=== PATIENT | female | born 1965 | race Caucasian/White ===

== ENCOUNTER → 2017-05-25 | Outpatient (CLI) | payer OTHER | LOC: FIMAGING 12:46 | PROVIDERS: ATTEND Podiatrist Primary Podiatric Medicine | DX: M89.8X7 Other specified disorders of bone, ankle and foot (principal) ==

== ENCOUNTER 2017-07-12 10:38 | Inpatient (IN) | payer OTHER ==
[2017-07-12] MEDS ORDERED: ceFAZolin 2 GM/DEXTROSE 100 ML IV ONE (10:59)
[2017-07-12] MEDS ORDERED: LR 1,000 ML IV ONE (11:00)
[2017-07-12] MEDS ORDERED: LIDOCAINE 1% 2 ML INJ ID PRN (11:00)
[2017-07-12] MEDS ORDERED: BACITRACIN 50,000 UNITS/10 ML SYR IRR ONE ×2 (11:27→12:50)
[2017-07-12] MEDS ORDERED: ceFAZolin 2 GM/SWFI 2 GM/20 ML SYR IVP ONE (11:30)
[2017-07-12] MEDS ORDERED: MIDAZOLAM 2 MG/2 ML VIAL IVP ONE (11:31)
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
[2017-07-12] MEDS ORDERED: MIDAZOLAM 2 MG/2 ML VIAL ONE (11:36)
[2017-07-12] MEDS ORDERED: VANCOMYCIN 1 GM VIAL ONE (11:37)
[2017-07-12] MEDS ORDERED: PROPOFOL/EMULSION 500 MG/50 ML BOTTLE IV ONE (11:37)
[2017-07-12] MEDS ORDERED: fentaNYL 100 MCG/2 ML INJ ONE ×2 (11:40→13:50)
--- NOTE | 2017-07-12 11:56 | PDHPUP ---
History & Physical Update H&P update statement: This history and physical update is based on an assessment of the patient which was completed after admission or registration (within 24 hours), but prior to the surgery/procedure. H&P update: no change in patient's condition since H&P completed
[2017-07-12] MEDS ORDERED: VANCOMYCIN HCL/NORMAL SALINE 250 ML IV ONE (11:57)
[2017-07-12] MEDS ORDERED: BUPIVACAINE 0.25% 30 ML SDV ONE (12:08)
[2017-07-12] MEDS: BUPIVACAINE 0.25% 30 ML SDV ONE ×2 (12:42→13:15)
--- NOTE | 2017-07-12 13:34 | POSTOPPROG ---
Post Op Note Date of Operation: 07/12/17 Surgeon: Coy Dangelo Executive Chairman: none Anesthesiologist: Isaiah Anesthesia: IV Sedation Pre-op Diagnosis: osteomyelitis right 5th ray Post-op Diagnosis: same Indication: osteomyelitis Procedure: 5th ray amputation Findings: bone infection Inf/Abcess present in the surg proc area at time of surgery?: No Depth: Deep Incisional (Fascial) (down to and including bone) EBL: Minimal Total fluids administered: 20cc 9/1 ratio .25% marcaine plain and with epi Complications: anal ulceration noted Drains: Other (none)
[2017-07-12] MEDS ORDERED: ONDANSETRON 4 MG/2 ML VIAL IVP PRN (14:55)
[2017-07-12] MEDS ORDERED: ONDANSETRON DISINTEGRATING 4 MG TAB PO PRN (14:55)
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
[2017-07-12] MEDS ORDERED: LR 500 ML IV PRN (16:29)
[2017-07-12] MEDS ORDERED: HYDROmorphone HCL/NS 0.5 MG/ML SYR IVP PRN (16:29)
[2017-07-12] MEDS ORDERED: LABETALOL HCL 5 MG/ML 20 ML MDV IVP PRN (16:29)
[2017-07-12] MEDS ORDERED: NALOXONE HCL 0.4 MG/ML INJ IVP PRN (16:29)
[2017-07-12] MEDS ORDERED: fentaNYL 100 MCG/2 ML INJ IVP PRN (16:29)
[2017-07-12] MEDS ORDERED: ALBUTEROL 3 ML DEYVIAL IH PRN (16:29)
[2017-07-12] MEDS ORDERED: PROMETHAZINE HCL 25 MG/ML INJ IVP PRN (16:29)
[2017-07-12] MEDS ORDERED: DEXAMETHASONE 4 MG/ML VIAL IVP PRN (16:29)
--- NOTE | 2017-07-12 16:29 | POSTANESTH ---
Post Anesthetic Evaluation Cardiovascular Status: Normal, Stable Respiratory Status: Normal, Stable Level of Consciousness/Mental Status: Can Participate in Eval Pain Control: Adequate, Prn Tx Ordered Nausea/Vomiting Control: Adequate, Prn Tx Ordered Complications Possibly Related to Anesthesia: None Noted
--- NOTE | 2017-07-12 19:05 | PDMN ---
Medical Necessity Medical necessity: Pt meets IP criteria per MD; est los >2 mn for eval/tx of sacral decubitus wound s/p R 5th metatarsal amputation; admit for further monitoring, cxs, Surgery/Wound Care consults, post-op care, pain management & therapies; hx paraplegia, seizures, neurogenic bladder/bowel; per H&P & order
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
[2017-07-13] MEDS ORDERED: ALTEPLASE 2 MG VIAL IVP PRN (00:18)
[2017-07-13] MEDS ORDERED: NS 1,000 ML IV SCH (00:30)
[2017-07-13] MEDS: OXYCODONE/APAP 5/325 TAB PO PRN ×3 (02:10→19:33)
[2017-07-13] MEDS: levETIRAcetam 500 MG TAB PO SCH ×3 (02:11→21:45)
[2017-07-13] MEDS ORDERED: BACLOFEN 20 MG TAB PO ONE (02:16)
[2017-07-13 04:42] LABS: PLATELET COUNT 198 10^3/uL (150-400)
[2017-07-13] MEDS: BACLOFEN 20 MG TAB PO SCH ×3 (09:41→21:45)
[2017-07-13] MEDS: GABAPENTIN 100 MG CAP PO SCH ×3 (09:41→21:45)
--- NOTE | 2017-07-13 13:27 | HOSPPROG ---
Hospitalist Progress Note Assessment/Plan: 51y female with c/o wound. First encounter, chart reviewed. D/W Dr Macedo. #Sacral Decubitus wound: -mgmt per surgery -await Dr Luo consult #Prolapsed bowel -surgical consult and plan today #s/p right 5th metatarsal amputation -POD #1 -mgmt per Dr. Dangelo -was on IV vanco at home, clarifying dose with pharmacy -will get ID consult #Paraplegia, long standing -at baseline #seizure disorder -cont keppra #HTN, low BP after surgery -Hold BP meds #Neurogenic bladder/bowel -consider ostomy Plan: surgical consult sacrum, bowel post op care pain mgmt hold bp meds restart vanco ID consult SCDs Full Code Subjective: Feeling well. Anxious to see the surgeon. Very pleasant. Objective: Vital Signs Temp Pulse Resp BP Pulse Ox 37.2 C 93 16 90/58 L 95 07/13/17 11:32 07/13/17 11:32 07/13/17 11:32 07/13/17 11:32 07/13/17 11:32 Microbiology 07/12/17 13:30 Gram Stain - Final Toe - Tissue Laboratory Results 07/13/17 04:30 07/13/17 04:30 07/12/17 07/13/17 07/14/17 05:59 05:59 05:59 Intake Total 1980 Output Total 1150 Balance 830 - Physical Exam Constitutional: appears nourished, not in pain, chronically ill appearing Eyes: PERRL, anicteric sclera, EOMI Ears, Nose, Mouth, Throat: moist mucous membranes, hearing normal, ears appear normal Cardiovascular: regular rate and rhythym, No JVD, No edema Respiratory: no respiratory distress, no rales or rhonchi, clear to auscultation Gastrointestinal: normoactive bowel sounds, No tenderness, No ascites Skin: warm, erythema, induration Musculoskeletal: joint effusion, generalized weakness, No normal joint ROM Neurologic: AAOx3, weakness Psychiatric: interacting appropriately, not anxious, not encephalopathic, thought process linear ICD10 Worksheet Patient Problems: Problems Problem Status Onset Prolapse of intestine Acute - ICD10 Problem Qualifiers (1) Prolapse of intestine
--- NOTE | 2017-07-13 13:42 | GOP ---
[f rep st] OPERATIVE REPORT DATE OF OPERATION: 07/12/2017 SURGEON: Coy Dangelo DPM PRODUCTION PATTERN MAKER: None. ANESTHESIA: Local with MAC by Bessy Colon M.D. PREOPERATIVE DIAGNOSIS: 1. Ulceration, right lateral 5th metatarsal. 2. Osteomyelitis, right 5th ray. POSTOPERATIVE DIAGNOSIS: 1. Ulceration, right lateral 5th metatarsal. 2. Osteomyelitis, right 5th ray. PROCEDURE PERFORMED: 1. Right 5th ray partial amputation. 2. Skin plasty with primary closure, right foot ulceration. FINDINGS: ESTIMATED BLOOD LOSS: Minimal. DESCRIPTION OF PROCEDURE: The patient presented to [facility] and was cleared for the intended procedure. The patient was taken to the operating room and placed on the table in supine po sition. IV sedation was started per the anesthesia department. The patient was then moved into a la teral position and the foot was prepped, scrubbed and draped in the usual sterile fashion following e xsanguination by elevation and Esmarch bandage, pneumatic ankle tourniquet was inflated to 225 mmHg. Attention was directed to the lateral aspect of the right 5th ray where the obvious ulceration was id entified at this time. A linear incision was started proximal on the 5th metatarsal, carried distall y towards the ulceration. Two converging semi-elliptical incisions were made around the ulceration a nd then the incision was carried distally towards the 5th digit. The incision was carried deep utili zing sharp and blunt dissection, making sure that all neurovascular structures were identified and re tracted. At this time all superficial bleeders were cauterized. The interposing skin tissue of the ulceration was dissected free and removed. Dissection was carried down to the level of the 5th metatarsophalangeal joint. At this time, the pro ximal phalanx and 5th metatarsal were noted to have erosive changes and it was decided that the 5th d igit would not be salvageable, that amputation would be necessary. At this time the incision was car ried dorsal and plantar around the 5th digit into the intermetatarsal space. The toe was disarticula berna at the level of the metatarsophalangeal joint and removed. The sagittal saw was then utilized to cut the 5th metatarsal proximal enough of any erosive changes. The metatarsal was dissected free an d removed and sent in for pathological evaluation and culture and sensitivity at this time. The remaining bone appeared to be normal and healthy at this point. Debridement of any remaining nec rotic tissue was performed before the pneumatic ankle tourniquet was released. No necrotic tissue wa s identified. The area was then flushed with 2 L of sterile saline and antibiotic rinse in a pulse lavage fashion. Upon completion of this, it was decided that the incision could be closed, but given the ulceration, a rotational flap was created to be moved into fill the ulcerative area. Upon completion of this, t he incision was packed with vancomycin-impregnated antibiotic beads. A 4 x 4 EpiFix graft was cut an d laid over the beads the length of the incision to allow for better healing of the tissue. The deep tissue was then closed with 2-0 Vicryl followed by subcutaneous closure with 5-0 Vicryl and skin nicola sure with 2-0 and 5-0 nylon. Upon completion of this, the area was dressed with Betadine-soaked Adaptics, 4 x 4's, Kerlix and Sam n. At this point, the patient was noted to have an anal ulceration and it was decided that a general surgery consultation would be performed in the recovery room. The patient was then taken to the rec overy room, vital signs stable, vascular supply intact to the remaining 4 digits of the right foot. PATHOLOGY: Soft tissue and bone specimen sent for pathological evaluation and culture and sensitivit y. HEMOSTASIS: PAT at 225 mmHg by 43 minutes. MATERIALS: Vancomycin-impregnated antibiotic beads, 4 x 4 cm EpiFix graft. INJECTABLES: 20 cc 9:1 ratio of 0.25% Marcaine plain, 0.25% Marcaine with epinephrine preoperatively . COMPLICATIONS: None. /[id number]/MODL
--- NOTE | 2017-07-13 15:30 | PCMIDPN ---
Assessment/Plan: Assessment/Plan: * Osteomyelitis right 5th toe status post ray amputation: Operative findings reviewed with Dr. Dangelo. Suspect amputation should be curative for osteomyelitis based on operative findings; pathology specimen is currently pending. Cultures are growing Staphylococcus aureus with susceptibility profile pending. Patient has completed approximately 6 weeks of vancomycin as of 07/11/2017. Reviewed with her treating infectious diseases physician at [facility] with noted plan of discontinuation post amputation. Will continue vancomycin through and plan discontinuation on Sunday as likely area of infected bone has been resected surgically. Time spent, greater than 35 min, of which greater than half was spent in education/counseling/coordination of care related to osteomyelitis of right 5th toe including conversations with Podiatry and Dr. Felton, her treating infectious disease doctor from [facility]. 07/13/17 15:25 07/13/17 15:30 Subjective: Asked to see patient by Latasha Montilla NP for osteomyelitis of right 5th toe and to assist with ongoing antibiotic management. Dr. Reddy [facility]2017 is reviewed. Plain film of foot performed in May is also reviewed showing erosive changes of 5th metatarsal. Patient has been receiving vancomycin since early May after hospitalization at [facility] where she describes having sepsis. Vancomycin has been administered under the supervision of [facility]. Patient describes anticipated stop date as 07/11/2017. No recent fever, chills or night sweats. Has had some difficulty with draws from PICC line. Now admitted and has undergone ray amputation of 5th toe. Noted to have decubitus ulcer at time of surgical procedure which has been evaluated by Dr. Luo. Allergies: No known drug allergies Social history: Patient stop smoking in April Objective: Vital Signs Temp Pulse Resp BP Pulse Ox 37.2 C 93 16 90/58 L 95 07/13/17 11:32 07/13/17 11:32 07/13/17 11:32 07/13/17 11:32 07/13/17 11:32 Microbiology 07/12/17 13:30 Gram Stain - Final Toe - Tissue Laboratory Results 07/13/17 04:30 07/13/17 04:30 07/12/17 07/13/17 07/14/17 05:59 05:59 05:59 Intake Total 1980 Output Total 1150 Balance 830 Vancomycin dose 1.5 g IV q.12 hours confirmed with [facility] - Physical Exam General Appearance: alert, no apparent distress EENT: No scleral icterus, No thrush Respiratory: lungs clear, No respiratory distress Cardiac/Chest: regular rate, rhythm Extremities: other (Right foot dressed postoperatively with deviation medially of foot) ICD10 Worksheet Patient Problems: Problems Problem Status Onset Prolapse of intestine Acute
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
--- NOTE | 2017-07-13 17:26 | WOCRNPDOC ---
[facility] Advanced Assessment Note - Skin Integrity Problem, Advanced Assess Perianal Maceration Dressing Type: Open to Air Exudate Amount: Scant Exudate Color: Reddish/Yellow Exudate Characteristic(s): Serosanguinous Patricia Wound Tissue: Blanching, Erythema, Macerated Patricia Wound Swelling: Moderate Wound Bed Color: [place], Red, Yellow Wound Bed Constitution: Granulation Tissue (20%), Red/[place] - Non Granular Tissue (70%), Adhered Slough (10%) Wound Edges: Irregular Site Odor: None Site Measurement - Head-to-Toe Length X Width X Depth (cm): L perianal wound: [id number]. R perianal wound:[id number] Skin Integrity Problem Comment: Extensive perianal tissue loss r/t prolapsed rectum and near-constant exposure to moisture. This wound is not pressure- related, not over a bony prominence. White, raised margins indicative moisture- associated skin damage. Per patient report, she says the rehab facility where she was previously began putting "a cream" on the area a "couple of weeks ago." The wound itself is oozing serous fluid, not likely that even a moisture- barrier cream would adhere/protect site. Recommend pressure-relieving support surface, as the skin breakdown and her paralysis make her vulnerable to pressure injuries. Nursing to order bed w/ P500 mattress. Continue w/ turns q2 and TAPS. Keep site dry by changing chux regularly.
[2017-07-13] MEDS: VANCOMYCIN 1.5 GM in D5W 250 ML IV SCH (17:39)
--- NOTE | 2017-07-13 18:22 | GCON ---
[f rep st] CONSULTATION DATE OF CONSULTATION: 07/13/2017 REASON FOR CONSULTATION: Rectal prolapse. HISTORY OF PRESENT ILLNESS: The patient is a 51-year-old woman who was taken to the operating room jerrod Dangelo for a right 5th metatarsal amputation for a chronic wound on her right foot. In the operating room, she was found to have a large sacral wound and significant rectal prolapse. We have been asked to evaluate the need for intervention for the rectal prolapse at this time. She reports t hat this has been a chronic issue for her. It reduces. She has had a colonoscopy which showed recta l prolapse. No other findings. She denies pain in the area. She has T5 paraplegia and has chronic constipation requiring bowel protocol every 2 days. She has been considering an end colostomy for re gulation of her bowel habits and gained independence. PAST MEDICAL HISTORY: T5 paraplegia, seizures, right foot wound, neurogenic bladder, hypertension. PAST SURGICAL HISTORY: Right foot debridement, right 5th metatarsal amputation, cervical fusion, cho lecystectomy. SOCIAL HISTORY: She is . She lives independently with home care. She denies tobacco, alcoh ol or recreational drug use. FAMILY HISTORY: Noncontributory. ALLERGIES: No known drug allergies. PHYSICAL EXAMINATION: GENERAL: Well-developed, well-nourished woman in no acute distress. HEENT: Normocephalic, atraumatic. No hearing deficits. Pupils equal and round. No scleral icterus. Mucou s membranes moist. NECK: Trachea midline. RESPIRATORY: Clear to auscultation bilaterally. No inc reased work of breathing. CARDIOVASCULAR: Regular rate and rhythm. ABDOMEN: Normoactive bowel iona nds. Soft, nondistended, nontender. Previous surgical scars from cholecystectomy well-healed. SKIN : Warm and dry. NEURO: Paraplegic. PSYCH: Mood and affect normal. Results reviewed. Dr. Luo has received several pictures of the wound and the rectal prolapse over the past 24 hours. It appears to be a superficial wound secondary to incontinence and increased mois ture, possible combination of pressure. Rectal prolapse is reducible without thrombosis or active bl eeding. IMPRESSION AND PLAN: A 51-year-old woman with rectal prolapse leading to the skin breakdown of her s acral area due to increased moisture. We discussed surgical intervention including sigmoid colectomy with rectopexy versus end-colostomy. We discussed risks of surgery including, but not limited to, h eart attack, stroke, blood clots or . We discussed risk of infection, bleeding, damage to surro unding structures, need for additional procedures, anastomotic leak or recurrence. She understands t he risks. She will think about her option and will decide tomorrow what surgical procedure she would like. This does not need to be done during this hospitalization. She may be discharged home and re turn for surgery within the next 1-2 weeks. We will work with our animal feeder to set up a surg ana date and time. Appreciate Hospitalist management of comorbidities and ID management of IV antibi otics for chronic wound. The patient was seen and evaluated by Dr. Ángela Luo. /[id number]/MODL
[2017-07-14] MEDS: VANCOMYCIN 1.5 GM in D5W 250 ML IV SCH ×2 (06:01→17:34)
[2017-07-14] MEDS: BACLOFEN 20 MG TAB PO SCH ×3 (09:26→21:20)
[2017-07-14] MEDS: levETIRAcetam 500 MG TAB PO SCH ×2 (09:27→21:20)
[2017-07-14] MEDS: GABAPENTIN 100 MG CAP PO SCH ×3 (09:27→21:20)
--- NOTE | 2017-07-14 11:41 | SOAPPROG ---
LOBO Progress Note Assessment/Plan: Assessment: 51 y/o paraplegic F with rectal prolapse with surrounding wound due to incontinence. S: No complaints. Eating breakfast during visit. Denies pain. O: Alert Afebrile Abdomen soft, nontender Plan: Seen with Dr. Luo. Recommend colostomy with Leonard's pouch as opposed to sigmoid colectomy and rectopexy. Pt will think about which option she wants to pursue. Surgery will be scheduled in the next week or 2, does not need to happen during this hospitalization. 07/14/17 11:42 Objective: Vital Signs Temp Pulse Resp BP Pulse Ox 36.5 C 89 16 110/60 99 07/14/17 08:00 07/14/17 08:00 07/14/17 08:00 07/14/17 08:00 07/14/17 08:00 Microbiology 07/12/17 13:30 Gram Stain - Final Toe - Tissue Laboratory Results 07/13/17 04:30 07/13/17 04:30 07/13/17 07/14/17 07/15/17 05:59 05:59 05:59 Intake Total 1980 1450 Output Total 1150 1400 600 Balance 830 -1400 850 ICD10 Worksheet Patient Problems: Problems Problem Status Onset Prolapse of intestine Acute
[2017-07-14] MEDS: OXYCODONE/APAP 5/325 TAB PO PRN (12:33)
--- NOTE | 2017-07-14 14:04 | HOSPPROG ---
Hospitalist Progress Note Assessment/Plan: 51y female with c/o wound. First encounter, chart reviewed. #Sacral Decubitus wound: -surgery in next week or 2 #rectal prolapse with surrounding wound due to incontinence -surgery is recommending a Marvin's pouch in the next week or two #acute hypoxemia per nursing staff patient's oxygen levels drop in the 60% area/likely has sleep apnea will get a chest xray today # Osteomyelitis s/p right 5th metatarsal amputation -POD #2 -mgmt per Dr. Dangelo -per Dr Macedo's noted, to cont vancomycin through the weekend and dc on Sunday, likely area of infected bone has been resected surgically -culture growing MRSA -will get ID consult #Paraplegia, long standing -at baseline #seizure disorder -cont keppra #HTN, low BP after surgery -Hold BP meds #Neurogenic bladder/bowel -motta in/ straight caths herself 3 x daily #Plan: will aim to dc tomorrow w home care, ordered a sleep oximetry study tonigh Subjective: Kim has no complaints, anxious to go home. Objective: Vital Signs Temp Pulse Resp BP Pulse Ox 36.5 C 89 16 110/60 99 07/14/17 08:00 07/14/17 08:00 07/14/17 08:00 07/14/17 08:00 07/14/17 08:00 Microbiology 07/12/17 13:30 Gram Stain - Final Toe - Tissue Laboratory Results 07/13/17 04:30 07/13/17 04:30 07/13/17 07/14/17 07/15/17 05:59 05:59 05:59 Intake Total 1979 1949 Output Total 1150 1400 1600 Balance 830 -1400 350 - Physical Exam Constitutional: no apparent distress, appears nourished, No not in pain (right shoulder chronic pain) Eyes: PERRL Ears, Nose, Mouth, Throat: hearing normal Cardiovascular: regular rate and rhythym Respiratory: no respiratory distress Skin: warm Musculoskeletal: generalized weakness Neurologic: AAOx3 Psychiatric: interacting appropriately, not anxious ICD10 Worksheet Patient Problems: Problems Problem Status Onset Prolapse of intestine Acute
[2017-07-14] MEDS ORDERED: BISACODYL 10 MG SUPP PR PRN (14:46)
[2017-07-14] MEDS ORDERED: LACTULOSE 20 GM/30 ML UDCUP PO PRN (14:46)
[2017-07-14] MEDS ORDERED: MAGNESIUM HYDROXIDE 30 ML UDCUP PO PRN (14:46)
[2017-07-14] MEDS ORDERED: POLYETHYLENE GLYCOL 3350 17 GM PKT PO PRN (14:46)
--- NOTE | 2017-07-14 17:25 | ASMTCMCOM ---
CM Note CM Note Notes: Reviewed chart and discussed w/RN and Hospitalist and w/patient. Pt will likely come back towards end of next week for surg for rectal prolapse. She will likely dc tomorrow and resume HHC w/[facility]; I left a voicemail for Liza w/[facility] today. CM will need to clarify w/MD tomorrow when pt will be stopping home IV ABX; she is current w/[facility] for this and we will also need to touch base w/them tomorrow if pt does dc. Pt said her son will be able to pick her up tomorrow. CM to follow. Date Signed: 07/14/2017 05:24 PM Electronically Signed By:Mela Samuels RN
[2017-07-14] MEDS: ACETAMINOPHEN 325 MG TAB PO PRN (17:48)
[2017-07-14] MEDS ORDERED: NS 500 ML IV ONE (23:04)
--- NOTE | 2017-07-14 23:22 | CPEKG ---
Heart Rate: 107 RR Interval: 561 P-R Interval: 176 QRSD Interval: 98 QT Interval: 332 QTC Interval: 443 P Olalla: 50 QRS Olalla: 80 T Wave Olalla: -73 EKG Severity - ABNORMAL ECG - EKG Impression: SINUS TACHYCARDIA EKG Impression: MULTIPLE VENTRICULAR PREMATURE COMPLEXES EKG Impression: PROBABLE LEFT ATRIAL ABNORMALITY EKG Impression: CAN'T R/O OLD ANTEROSEPTAL ID. EKG Impression: DIFFUSE ST-T WAVE ABNORMALITIES. Electronically Signed By: Frederick Canales 15-Jul-2017 07:30:39
[2017-07-15] MEDS: SENNOSIDES/DOCUSATE SODIUM TAB PO SCH ×2 (00:50→09:25)
[2017-07-15] MEDS: ACETAMINOPHEN 325 MG TAB PO PRN ×2 (02:35→09:22)
[2017-07-15] MEDS: VANCOMYCIN 1.5 GM in D5W 250 ML IV SCH (05:07)
[2017-07-15 07:42] VITALS: BP 132/77
--- NOTE | 2017-07-15 08:27 | HOSPPROG ---
Hospitalist Progress Note Assessment/Plan: 51y female with c/o wound. #Sacral Decubitus wound: -surgery in next week or 2 #rectal prolapse with surrounding wound due to incontinence -surgery is recommending a Marvin's pouch in the next week or two #acute hypoxemia, consistent with sleep apnea -sleep oximetry study shows 24% of the time that her O2 levels are 86-89% -will order home O2 for night and have her get an OP sleep study # Osteomyelitis s/p right 5th metatarsal amputation/MRSA -POD #3 -mgmt per Dr. Dangelo -reviewed w Dr Macedo, ok to dc vancomycin after this morning's dose #Paraplegia, long standing -at baseline #seizure disorder -cont keppra #HTN, low BP after surgery -Hold BP meds #Neurogenic bladder/bowel -motta in/ straight caths herself 3 x daily #Plan: dc home, dc PICC, home O2 Subjective: Kim is feeling great, anxious to go home Objective: Vital Signs Temp Pulse Resp BP Pulse Ox 36.6 C 87 16 132/77 H 95 07/15/17 07:41 07/15/17 07:41 07/15/17 07:41 07/15/17 07:41 07/15/17 07:41 Microbiology 07/12/17 13:30 Gram Stain - Final Toe - Tissue Laboratory Results 07/13/17 04:30 07/15/17 04:25 07/14/17 07/15/17 07/16/17 05:59 05:59 05:59 Intake Total 3530 Output Total 1400 3500 Balance -1400 30 - Physical Exam Constitutional: no apparent distress, appears nourished, not in pain Eyes: PERRL Ears, Nose, Mouth, Throat: hearing normal Respiratory: no respiratory distress Genitourinary: motta in urethra Skin: warm Neurologic: AAOx3 Psychiatric: interacting appropriately, not anxious ICD10 Worksheet Patient Problems: Problems Problem Status Onset Prolapse of intestine Acute
--- NOTE | 2017-07-15 09:03 | PDHOMEO2F ---
Home Oxygen Face to Face Home Orders: I certify that a physician or a nurse practitioner or physician's cashier assistant has had a [id number] encounter with this patient on the date of this order due to the diagnosis listed, which relates to the primary reason the patient requires home oxygen. Alternative treatments have been tried, or considered, and deemed ineffective. It is anticipated that supplemental oxygen will result in improvement with treatment. Home oxygen qualifying diagnosis: DANIEL SpO2 on room air (%): 86% Frequency of home oxygen needed: during sleep Home oxygen liters per minute: 2 Home oxygen delivery device: nasal cannula Concentrator: No E-tanks for mobility and back up: No If ordering portable O2, is the patient mobile in the home?: No I certify that, based on these findings, the home oxygen is medically necessary for this patient for the following length of time. Length of time home oxygen needed: 99 years Home Oxygen Comment: patient had pulse oximetry study done at night indicating she will need oxygen
--- NOTE | 2017-07-15 09:10 | PDIAF ---
- Diagnosis Diagnosis: Osteomyelitis of 5th metatarsal s/p amputation, DANIEL Code Status: Full Code - Medication Management Discharge Medications: Medications to Continue on Transfer Baclofen 40 mg PO DAILY 07/12/17 [Last Taken 07/12/17] Baclofen 60 mg PO DAILY@12 07/12/17 [Last Taken 07/12/17] Baclofen 60 mg PO HS 07/12/17 [Last Taken 07/12/17] Gabapentin [Neurontin 100 MG (*)] 100 mg PO TID 07/12/17 [Last Taken 07/12/17] LEVETIRACETAM [Keppra 1000 mg] 1,000 mg PO BID #30 tab 07/15/17 [Last Taken Unknown] Lisinopril 20 mg PO HS #30 tablet 07/15/17 [Last Taken Unknown] amLODIPine BESYLATE [Amlodipine Besylate] 10 mg PO DAILY #30 tablet 07/15/17 [ Last Taken Unknown] Discharge Medications: Refer to the Discharge Home Medication list for PRN reason. PICC Care - Routine: N/A - Orders Services needed: Home Care, Registered Nurse, Physical Therapy, Occupational Therapy Home Care Face to Face: I certify that this patient was under my care and that I had the required acbc-wa-phuj encounter meeting the encounter requirements on the discharge day. My findings support the fact that the patient is homebound as defined in Home Care Face to Face Continued: CMS Chapter 7 Medicare Benefits Manual 30.1.1 , The condition of the patient is such that there exists a normal inability to leave home and consequently, leaving home would require a considerable and taxing effort. Isolation Type: Contact Isolation Diet Recommendation: no restrictions on diet Diet Texture: Regular Texture Diet Additional Instructions: be sure to check your blood pressure and if systolic is less than 110, do not take the amlodipine or lisinopril f/u with Dr Meaghan Meyer is a wonderful PCP you need to get an OP sleep study, you have DANIEL and need a formal study for this - Follow Up Care Current Providers and Referrals: Esmer Meyer MD [Medical Doctor] - NONE *PRIMARY CARE P,. [Primary Care Provider] -
--- NOTE | 2017-07-15 09:12 | ASMTLACE ---
LACE Length of stay for Answers: 3 days current admission Acuity / Level of Answers: Yes Care: Did the patient have an inpatient admission? Comorbidities - select Answers: Opioid dependence all that apply / Chronic pain Other Notes: HTN # of Emergency department Answers: 0 visits in the last 6 months Score: 11 Date Signed: 07/15/2017 09:11 AM Electronically Signed By:Violeta Singh LCSW
[2017-07-15] MEDS: GABAPENTIN 100 MG CAP PO SCH (09:20)
[2017-07-15] MEDS: levETIRAcetam 500 MG TAB PO SCH (09:21)
[2017-07-15] MEDS: BACLOFEN 20 MG TAB PO SCH (09:22)
--- NOTE | 2017-07-15 09:22 | SOAPPROG ---
SOAP Progress Note Assessment/Plan: Assessment: 51 y/o paraplegic F with rectal prolapse with surrounding wound due to incontinence. S: No complaints. Eating breakfast during visit. Denies pain. O: Alert Afebrile Abdomen soft, nontender Plan: Seen with Dr. Luo. Recommend colostomy with Leonard's pouch as opposed to sigmoid colectomy and rectopexy. Pt will think about which option she wants to pursue. Surgery will be scheduled in the next week or 2, does not need to happen during this hospitalization. 07/14/17 11:42 07/15/17 09:21 no complaints. More questions about surgery were answered. Ok to discharge. Plan for surgery later this week. Objective: Vital Signs Temp Pulse Resp BP Pulse Ox 36.6 C 87 16 132/77 H 95 07/15/17 07:41 07/15/17 07:41 07/15/17 07:41 07/15/17 07:41 07/15/17 07:41 Microbiology 07/12/17 13:30 Gram Stain - Final Toe - Tissue Laboratory Results 07/13/17 04:30 07/15/17 04:25 07/14/17 07/15/17 07/16/17 05:59 05:59 05:59 Intake Total 3530 Output Total 1400 3500 Balance -1400 30 ICD10 Worksheet Patient Problems: Problems Problem Status Onset Prolapse of intestine Acute
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
--- NOTE | 2017-07-15 09:43 | GDS ---
[f rep st] DISCHARGE SUMMARY DISCHARGE DIAGNOSES: 1. Osteomyelitis, status post right 5th metatarsal amputation. 2. Sacral decubitus. 3. Rectal prolapse with surrounding wound due to incontinence. 4. Acute hypoxemia consistent with obstructive sleep apnea. 5. Paraplegia, long-standing. 6. Seizure disorder. 7. Hypertension. 8. Neurogenic bladder and bowel. CONSULTATIONS: 1. Dr. Coy Dangelo. 2. Dr. Bill Ortiz. 3. Dr. Frederick Macedo. HISTORY OF PRESENT ILLNESS: Briefly, the patient is a 52-year-old female with longstanding paraplegi a who has a history of chronic right foot infections. During her stay, she had a 5th metatarsal ampu tation with Dr. Dangelo. After surgery, she was found to have a large sacral decubitus, which she was previously not aware. Dr. Ortiz evaluated her. The recommendation is for her to have followup with surgery in the next 2 weeks. She met with Dr. Luo and the plan is for her to get a Marvin's pouch to avoid peritoneal soilage, which is impacting her wound. She will be discharged with home c are and further follow up with Dr. Dangelo in regard to her right 5th metatarsal amputation. In ad dition, it was noted by the nursing staff that the patient had episodes of sleep apnea during the nig ht. An oximetry study was performed, which indicated she would need oxygen. This will be ordered. Also has made recommendations for her to get an outpatient sleep study. HOSPITAL COURSE: 1. Osteomyelitis. She is status post a right 5th metatarsal amputation. She was treated with vanco mycin. It is likely that the infection was removed with the surgery. The peripherally inserted cent ral catheter line will be removed today and she will further follow up with Dr. Dangelo. 2. Sacral decubitus. This is secondary to loose stool due to incontinence. The plan is for her to get a Marvin's pouch in the next week or two. 3. Rectal prolapse. She has a surrounding wound due to the incontinence. 4. Acute hypoxemia. This is consistent with obstructive sleep apnea. A sleep oximetry study shows that 24% of the time, her oxygen levels are 86% to 89%. Home oxygen has been ordered. 5. Paraplegia, long-standing. She is at her baseline. 6. Seizure disorder. Keppra. 7. Hypertension. She can resume her home medications, as long as her systolic is greater than 110. 8. Neurogenic bladder and bowel. She has a very good regimen at home to keep this well managed. DISCHARGE CONDITION: Stable. Blood pressure is 132/77, heart rate of 87, respiratory rate is 16, O2 saturation on room air are 95%, temperature is 36.6 Celsius. MEDICATIONS AT DISCHARGE: Please see the EMR. DISCHARGE INSTRUCTIONS: 1. Follow up Dr. Dangelo. 2. To follow up with Dr. Luo in regard to her wound. 3. I have given her a primary care doctor for followup care. 4. If she develops fever, chills, chest pain, shortness of breath, return to the ER. Greater than 30 minutes discharging and coordinating her care. /[id number]/MODL
== END 2017-07-15 13:02 | disposition home health service (06) | DRG 574 ==
LOC: FSGY 10:38 → F3E 14:29 → OBSVTOIN 14:43 → F3N 15:47
PROVIDERS: ADMIT Family Medicine; ATTEND Internal Medicine
PROC: 0JXQ0ZB Transfer Right Foot Subcutaneous Tissue and Fascia with Skin and Subcutaneous Tissue, Open Approach (ICD-10-PCS; principal; 2017-07-12 12:00)
PROC: 0Y6X0Z0 Detachment at Right 5th Toe, Complete, Open Approach (ICD-10-PCS; principal; 2017-07-12 12:00)
PROC: 0HRMXK4 Replacement of Right Foot Skin with Nonautologous Tissue Substitute, Partial Thickness, External Approach (ICD-10-PCS; principal; 2017-07-12 12:00)
PROC: 0QBN0ZZ Excision of Right Metatarsal, Open Approach (ICD-10-PCS; principal; 2017-07-12 12:00)
DX: L98.421 Non-pressure chronic ulcer of back limited to breakdown of skin (principal); K62.3 Rectal prolapse; K59.2 Neurogenic bowel, not elsewhere classified; L97.511 Non-pressure chronic ulcer of other part of right foot limited to breakdown of skin; L03.115 Cellulitis of right lower limb; M86.671 Other chronic osteomyelitis, right ankle and foot; B95.62 Methicillin resistant Staphylococcus aureus infection as the cause of diseases classified elsewhere; G82.21 Paraplegia, complete; N31.9 Neuromuscular dysfunction of bladder, unspecified; V87.7XXS Person injured in collision between other specified motor vehicles (traffic), sequela; G47.33 Obstructive sleep apnea (adult) (pediatric); R09.02 Hypoxemia; G40.909 Epilepsy, unspecified, not intractable, without status epilepticus; K64.9 Unspecified hemorrhoids; Z99.3 Dependence on wheelchair; I10 Essential (primary) hypertension; Z87.891 Personal history of nicotine dependence; Z98.1 Arthrodesis status
CPT/HCPCS: C1713; J0171; J2250; J2704; J2997; J3010; J3370; Q4131

== ENCOUNTER 2017-07-27 08:37 | Inpatient (IN) | payer OTHER ==
--- NOTE | 2017-07-25 11:50 | GHP ---
[f rep st] PREOP HISTORY AND PHYSICAL DATE OF ADMISSION: 07/27/2017 DATE OF SURGERY: 07/27/2017. CHIEF COMPLAINT: Rectal prolapse. HISTORY OF PRESENT ILLNESS: The patient is a pleasant 52-year-old woman who was recently taken to the operating room by Dr. Dangelo for right 5th metatarsal amputation for chronic wound on her foot. In the operating room, she was found to have a large sacral wound and significant rectal prolapse. She was admitted to the hospitalist for further workup. We evaluated her at that time. This is a chronic issue for her. The prolapse will reduce spontaneously. She has had a colonoscopy which showed rectal prolapse but no other finding. She denies any pain in the area. She has T5 paraplegia and chronic constipation requiring bowel protocol every 2 days. She has been considering an end-colostomy for quite some time for regulation of bowel habits and increased independence. At the time of her evaluation, the large sacral wound was deemed to be due to increased moisture in the area and incontinence, less likely pressure. PAST MEDICAL HISTORY: T5 paraplegia, seizures, right foot wound, neurogenic bladder, hypertension. PAST SURGICAL HISTORY: Right foot debridement, right 5th metatarsal amputation , cervical fusion, cholecystectomy. SOCIAL HISTORY: She is . She lives independently with home care. She denies tobacco, alcohol, or recreational drug use. FAMILY HISTORY: Noncontributory. ALLERGIES: No known drug allergies. REVIEW OF SYSTEMS: 10-point review of systems negative aside from HPI. PHYSICAL EXAMINATION: GENERAL: Well-developed, well-nourished woman in no acute distress. HEENT: Normocephalic, atraumatic. No hearing deficits. Pupils equal and round. No scleral icterus. Mucous membranes moist. NECK: Trachea midline. RESPIRATORY: Clear to auscultation bilaterally. No increased work of breathing. CARDIOVASCULAR: Regular rate and rhythm. No peripheral edema. ABDOMEN: Normoactive bowel sounds. Soft, nondistended, nontender. RECTAL: Deferred because previously evaluated. SKIN: Warm and dry. NEUROLOGIC: Paraplegic. PSYCHIATRIC: Mood and affect normal. IMPRESSION AND PLAN: A 52-year-old woman with rectal prolapse leading to skin breakdown of her sacral area due to increased moisture and incontinence. We recommend sigmoid colectomy with end colostomy. We discussed risks of surgery, including but not limited to, heart attack, stroke, blood clots, or . We discussed risk of infection, bleeding, damage to surrounding structures, need for additional procedures. She understands the risks and would like to proceed. This will be an inpatient procedure. I personally saw and evaluated this patient and Laila Robertson PA-C acted as scribe /[id number]/MODL MTDD
[2017-07-27] MEDS ORDERED: LR 1,000 ML IV ONE (08:56)
[2017-07-27] MEDS ORDERED: BUPIVACAINE 0.5% 30 ML SDV ONE (09:06)
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
--- NOTE | 2017-07-27 09:14 | PDHPUP ---
History & Physical Update H&P update statement: This history and physical update is based on an assessment of the patient which was completed after admission or registration (within 24 hours), but prior to the surgery/procedure. H&P update: H&P reviewed & patient examined, no change in patient's condition since H&P completed
[2017-07-27] MEDS ORDERED: ROCURONIUM 50 MG/5 ML VIAL ONE (09:24)
[2017-07-27] MEDS ORDERED: fentaNYL 250 MCG/5 ML INJ ONE (09:24)
[2017-07-27] MEDS ORDERED: PROPOFOL 200 MG/20 ML VIAL ONE (09:24)
[2017-07-27] MEDS ORDERED: MIDAZOLAM 2 MG/2 ML VIAL ONE (09:24)
[2017-07-27] MEDS ORDERED: DEXAMETHASONE 4 MG/ML VIAL ONE (09:25)
[2017-07-27] MEDS ORDERED: RANITIDINE 50 MG/2 ML VIAL ONE (09:25)
[2017-07-27] MEDS ORDERED: LIDOCAINE 2% 100 MG/5 ML SYR ONE (09:25)
--- NOTE | 2017-07-27 12:06 | POSTOPPROG ---
Post Op Note Date of Operation: 07/27/17 Surgeon: Ángela Luo Extract Operator: aureliano Anesthesiologist: asya Anesthesia: GET(General Endotracheal) Pre-op Diagnosis: rectal prolapse, paraplegia Post-op Diagnosis: same Indication: 52yo F c rectal prolapse and perianal wound due to incontinence Procedure: lap assist sigmoidectomy with leni's pouch, debridement perianal wound Findings: redundant sigmoid colon. perianal wound Inf/Abcess present in the surg proc area at time of surgery?: No EBL: Minimal Specimen(s): sigmoid colon
[2017-07-27] MEDS ORDERED: diphenhydrAMINE 25 MG CAP PO PRN (12:08)
[2017-07-27] MEDS ORDERED: ONDANSETRON DISINTEGRATING 4 MG TAB PO PRN (12:08)
[2017-07-27] MEDS ORDERED: ONDANSETRON 4 MG/2 ML VIAL IVP PRN ×2 (12:08→12:22)
[2017-07-27] MEDS ORDERED: ACETAMINOPHEN 325 MG TAB PO PRN (12:08)
[2017-07-27] MEDS ORDERED: HYDROmorphONE/DILAUDID 1 MG/ML INJ IVP PRN (12:09)
[2017-07-27] MEDS ORDERED: NALOXONE HCL 0.4 MG/ML INJ IVP PRN (12:22)
[2017-07-27] MEDS ORDERED: ALBUTEROL 3 ML DEYVIAL IH PRN (12:22)
--- NOTE | 2017-07-27 12:23 | POSTANESTH ---
Post Anesthetic Evaluation Cardiovascular Status: Similar to Pre-Op Cond Respiratory Status: Similar to Pre-op Cond. Level of Consciousness/Mental Status: Mildly Sleepy, Arousable Pain Control: Adequate, Prn Tx Ordered Nausea/Vomiting Control: Adequate, Prn Tx Ordered Complications Possibly Related to Anesthesia: None Noted
[2017-07-27] MEDS ORDERED: HYDROmorphone HCL/NS 0.5 MG/ML SYR IVP PRN (13:16)
--- NOTE | 2017-07-27 13:56 | PDMN ---
Medical Necessity Medical necessity: IP surgery per [facility] cpt 21581 lap assisted sigmoidectomy w/ Marvin's pouch
[2017-07-27] MEDS: GABAPENTIN 100 MG CAP PO SCH ×2 (16:17→21:50)
[2017-07-27] MEDS: NS 1,000 ML IV SCH (16:41)
[2017-07-27] MEDS ORDERED: LEVETIRACETAM 1000 MG PO SCH (21:00)
[2017-07-27] MEDS: BACLOFEN 20 MG TAB PO SCH (21:50)
[2017-07-27] MEDS: levETIRAcetam 500 MG TAB PO SCH (21:50)
[2017-07-27] MEDS: HYDROCODONE/APAP 5/325 TAB PO PRN (22:47)
[2017-07-28] MEDS: NS 1,000 ML IV SCH (06:11)
[2017-07-28] MEDS: GABAPENTIN 100 MG CAP PO SCH ×3 (08:23→21:32)
[2017-07-28] MEDS: levETIRAcetam 500 MG TAB PO SCH ×2 (08:23→21:32)
[2017-07-28] MEDS: ENOXAPARIN 40 MG/0.4 ML SYR SC SCH (08:23)
[2017-07-28] MEDS: BACLOFEN 20 MG TAB PO SCH ×3 (08:23→21:32)
[2017-07-28] MEDS: HYDROCODONE/APAP 5/325 TAB PO PRN ×3 (08:35→21:32)
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
[2017-07-29] MEDS: HYDROCODONE/APAP 5/325 TAB PO PRN ×2 (06:04→13:47)
[2017-07-29 08:04] VITALS: BP 92/53
[2017-07-29] MEDS: BACLOFEN 20 MG TAB PO SCH ×2 (08:06→13:56)
[2017-07-29] MEDS: GABAPENTIN 100 MG CAP PO SCH ×2 (08:06→13:56)
[2017-07-29] MEDS: levETIRAcetam 500 MG TAB PO SCH (08:06)
[2017-07-29] MEDS: ENOXAPARIN 40 MG/0.4 ML SYR SC SCH (08:07)
--- NOTE | 2017-07-29 09:23 | PDIAF ---
- Diagnosis Diagnosis: rectal prolapse, paraplegia Code Status: Full Code - Medication Management Discharge Medications: Medications to Continue on Transfer Baclofen 40 mg PO HS 07/12/17 [Last Taken 07/26/17] Baclofen 60 mg PO DAILY 07/12/17 [Last Taken 07/27/17 06:30] Baclofen 60 mg PO DAILY@12 07/12/17 [Last Taken 07/26/17] Gabapentin [Neurontin 100 MG (*)] 100 mg PO TID 07/12/17 [Last Taken 07/27/17 06 :30] LEVETIRACETAM [Keppra 1000 mg] 1,000 mg PO BID #30 tab 07/15/17 [Last Taken 07/11 06:30] Herbals/Supplements -Info Only 1 ea PO DAILY 07/23/17 [Last Taken 07/23/17] Ibuprofen [Motrin (*)] 200 mg PO DAILY PRN 07/23/17 [Last Taken 07/23/17] oxyCODONE HCL/ACETAMINOPHEN [Percocet 5-325 mg Tablet] 1 each PO Q6H PRN #15 tablet 07/29/17 [Last Taken Unknown] Discharge Medications: Refer to the Discharge Home Medication list for PRN reason. - Orders Services needed: Home Care, Registered Nurse Home Care Face to Face: I certify that this patient was under my care and that I had the required [id number] encounter meeting the encounter requirements on the discharge day. My findings support the fact that the patient is homebound as defined in Home Care Face to Face Continued: CMS Chapter 7 Medicare Benefits Manual 30.1.1 , The condition of the patient is such that there exists a normal inability to leave home and consequently, leaving home would require a considerable and taxing effort. Isolation Type: Contact Isolation Diet Recommendation: no restrictions on diet Diet Texture: Regular Texture Diet Additional Instructions: use stool softeners as needed for consistent ostomy output - Follow Up Care Current Providers and Referrals: Esmer Meyer MD [Primary Care Provider] - Ángela Luo MD [Medical Doctor] - follow up in 10 days
--- NOTE | 2017-07-29 10:08 | ASMTCMCOM ---
CM Note CM Note Notes: CM spoke with hospitalist and RN, patient is to be d/c today and continue with planned [facility]. CM call to [facility] and spoke with Pete [phone], will continue with resumption of care, CM will send orders. Son will take patient home. CM available for further CM needs if necessary. D/C Plan: D/C today to home, will resume HC with [facility]. Date Signed: 07/29/2017 10:07 AM Electronically Signed By:Iva Toussaint
--- NOTE | 2017-07-29 14:25 | WOCRNPDOC ---
CURT Advanced Assessment Note - Colostomy Assessment, Advanced Left Upper Abdomen Colostomy Stoma Colostomy Appliance Intact: Yes Colostomy Appliance Currently in Use: Two Piece Flat, 2 3/4 Stoma Color: Red Stoma Turgor: Moist Stoma Shape: Round Stoma Height: Protruding Slightly Mucocutaneus Junction: Intact Colostomy Effluent: Fecal Colostomy Size - Head-to-Toe Length X Width X Depth (cm): 2.9 Colostomy Details: End Peristomal Skin: Intact Colostomy Comment/Treatment Details: Wound care asked to consult for new colostomy teaching. Patient already with DC orders for today and anxious to go home. Patient was seen prior to her surgery for site markings and was given some information that she has clearly read and understood. Patient given all teaching material - Day 1 and 2. I quickly pointed out areas of interest, particularly the material that provides step by step appliance change instructions and the section on troubleshooting. Patient verbalizes it is OK to request and supply products to her home. Patient able to use the adhesive remover spray to remove the appliance. This RN measured the stoma at 29mm and patient was able to transfer measurement to wafer and cut wafer to fit. The template was placed with her educational supplies. We did discuss the need to continue to measure the stoma as it changes. We also discussed possible complications should her stoma receed. Currently, it is flat and flush with her skin. She may need to use some convexity going forward but currently, stool is draining appropriately into the appliance. She will have the support of a home health RN for this as well. Patient was able to verbalize how that wafer and bag join and demonstrated this skill for me. She preferred to join them and then place them over her stoma. I held a mirror so she could visualize but this only made placement more difficult for her. Appliance appropriately placed. All questions answered. Patient given a few supplies so that she will have some should she need to replace the appliance prior to home health RN arrival. Order for supplies placed with [employer] and order form faxed. A copy was given to the patient as well. I'll place this patient down for follow-up early this week but it is expected that she will DC today.
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
--- NOTE | 2017-08-13 14:44 | GDS ---
[f rep st] DISCHARGE SUMMARY ADMITTING DIAGNOSIS: Rectal prolapse. SECONDARY DIAGNOSES: Perianal wound due to incontinence, T5 paraplegia, seizures, right foot wound, hypertension. REASON FOR ADMISSION: The patient is a 52-year-old paraplegic woman who developed a perianal wound d ue to rectal prolapse and incontinence. She desires an end colostomy at this time for increased inde pendence and wound healing. HOSPITAL COURSE: She was taken to the operating room by Dr. Ángela Luo on 07/27/2017 for lap-assist ed sigmoid colectomy with Marvin's pouch, debridement of skin and soft tissue of the perianal wound with injection of micronized EpiFix. Final pathology from the surgery showed benign findings, 3 hyp erplastic polyps. On postoperative day #1, she had gas and stool in her ostomy appliance. Her diet was advanced as tolerated to regular. On postoperative day #2, she had ostomy teaching. Her pain wa s well controlled. She was tolerating a regular diet, and she was ready for discharge. DISCHARGE CONDITION: She is being discharged home independently in stable condition with home health care for wound care and ostomy education. DISCHARGE MEDICATIONS: She was sent home with a prescription for Percocet. Instructed to resume royce e medicines. Please see EMR for further detail. DISCHARGE INSTRUCTIONS AND FOLLOWUP: She may use stool softeners as needed for ostomy output. She w as sent home with instructions on ostomy care from the certified wound ostomy nurse. She will follow up with Dr. Luo in 7-10 days. Have home care for ostomy education. Call with any worsening sympt oms, questions or concerns. /[id number]/MODL
--- NOTE | 2017-08-23 08:50 | GOP ---
[f rep st] OPERATIVE REPORT DATE OF OPERATION: 07/27/2017 SURGEON: Ángela Luo MD DIRECTOR SURGICAL: Laila Robertson P.A.-C. ANESTHESIA: Myles Lao MD/General. PREOPERATIVE DIAGNOSIS: Paraplegia and rectal prolapse with perianal wound. POSTOPERATIVE DIAGNOSIS: Paraplegia and rectal prolapse with perianal wound. PROCEDURE PERFORMED: Laparoscopic sigmoidectomy with Marvin's pouch, end colostomy and debridement of perianal wound with injection of tissue-derived skin substitute. FINDINGS: Redundant colon, perianal wound. SPECIMENS: Sigmoid colon. ESTIMATED BLOOD LOSS: Minimal. INDICATIONS: The patient is a 52-year-old woman with paraplegia. She has rectal prolapse due to her bowel protocol and developed a wound due to her hemorrhoids and prolapse on the perianal area. DESCRIPTION OF PROCEDURE: Patient was brought into the operating room, placed supine on the table and general anesthesia was administered. Her abdomen was prepped and draped in usual sterile fashion. I infiltrated all sites with 0.5% Marcaine prior to making incisions. I made an incision at her umbilicus. I elevated it, I inserted the Veress needle. Her abdomen insufflated easily to a pressure of 15 mmHg. I placed a 5 mm trocar with a camera at the site. There were no injuries from Veress needle placement. Under direct vision, I placed a 5 mm trocar at her pelvis and a 5 mm trocar in the right lower abdomen. I explored her abdomen. She had a very redundant sigmoid colon. I was able to grasp this and dissect along the white line of Toldt and down to the peritoneal reflection. I then performed a medial to lateral approach. I used the Harmonic Scalpel to divide the sigmoid vessels. I continued my dissection. I then upsized the pelvic port to accommodate a stapler. I transected the rectum with an Endo-TASH 60 blue load coming across the rectum where the tenia splayed. I made an incision where she was premarked for an ostomy in her left upper quadrant. I dissected down through the skin and subcutaneous tissues. I divided the fascia enough to accommodate 2 fingerbreadths and I brought the colon up to the skin. I sutured the colon to the fascia with 2-0 Vicryl. I examined her pelvis again. Hemostasis achieved. There were no injuries noted. I withdrew the camera and the port. I closed the fascia at the staple port with 0 vicryl. I closed all skin with 4-0 Monocryl. Dermabond applied. I then cut the colon. I then matured the ostomy with 3-0 Vicryl. An appliance was placed over the ostomy. Next, I examined her bottom. I debrided it with a knife. I then injected micronized EpiFix [id number], expiration December 25, 2019 was reconstituted in 2 cc of normal saline and I injected into the perianal wound bed. She was taken out of the lithotomy position, awakened in the operating room, extubated, transferred to PACU in stable condition. /[id number]/MODL MTDD
== END 2017-07-29 15:26 | disposition home health service (06) | DRG 330 ==
LOC: F3E 08:37
PROVIDERS: ADMIT Surgery; ATTEND Surgery
DX: K62.3 Rectal prolapse (principal); G82.20 Paraplegia, unspecified; S31.839A Unspecified open wound of anus, initial encounter; R32 Unspecified urinary incontinence; N31.9 Neuromuscular dysfunction of bladder, unspecified; I10 Essential (primary) hypertension; Z98.1 Arthrodesis status; R56.9 Unspecified convulsions; Z89.429 Acquired absence of other toe(s), unspecified side
CPT/HCPCS: J0696; J1100; J1170; J1650; J2001; J2250; J2704; J2780; J3010; Q4145

== ENCOUNTER 2017-09-04 21:51 | Observation (INO) | payer OTHER ==
[2017-09-04 23:39] LABS: PLATELET COUNT 295 10^3/uL (150-400)
[2017-09-05] MEDS ORDERED: IBUPROFEN 600 MG TAB PO ONE ×2 (00:01→00:22)
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
[2017-09-05] MEDS ORDERED: ACETAMINOPHEN 500 MG TAB ONE (01:01)
[2017-09-05] MEDS ORDERED: ACETAMINOPHEN 500 MG TAB PO ONE (01:01)
[2017-09-05 05:41] LABS: PLATELET COUNT 261 10^3/uL (150-400)
[2017-09-05] MEDS ORDERED: LORazepam 0.5 MG TAB PO PRN (06:25)
[2017-09-05] MEDS ORDERED: HYDROCODONE/APAP 5/325 TAB PO PRN (06:28)
[2017-09-05] MEDS ORDERED: ONDANSETRON 4 MG/2 ML VIAL IVP PRN (06:29)
[2017-09-05] MEDS ORDERED: ONDANSETRON DISINTEGRATING 4 MG TAB PO PRN (06:29)
[2017-09-05] MEDS ORDERED: NS W/ 20 KCl/L 1,000 ML IV SCH (06:30)
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
[2017-09-05] MEDS: DULoxetine 20 MG CAP PO SCH (09:54)
[2017-09-05] MEDS: BACLOFEN 20 MG TAB PO SCH ×2 (09:55→13:51)
[2017-09-05] MEDS: GABAPENTIN 100 MG CAP PO SCH ×3 (09:56→21:29)
[2017-09-05] MEDS: diphenhydrAMINE 25 MG CAP PO PRN ×3 (09:56→23:26)
[2017-09-05] MEDS: ENOXAPARIN 40 MG/0.4 ML SYR SC SCH (09:57)
--- NOTE | 2017-09-05 10:40 | HOSPPROG ---
Hospitalist Progress Note Assessment/Plan: Patient is a 52-year-old female with a past medical history of paraplegia since 1992, seizures, chronic chronic pressure wounds, rectal prolapse and neurogenic bladder. She presented the emergency room because of ongoing fever for approximately a day. She was seen earlier that day by Dr. Luo in for follow- up in regards to a wound. I have updated Dr. Luo in that the patient is here in the hospital. *Fever -does not meet sepsis criteria -reviewed her chest x-ray which showed nothing acute -urinalysis shows positive nitrates +leuko esterase and 3-5 white blood cells -she has been started on ceftriaxone -urine culture and blood cultures are pending * neurogenic bladder -she self caths 4 times daily and as needed, she does not have her catheters available to her -she has requested that the Tejada be placed in to avoid getting catheterize frequently * chronic pressure wounds -wound Care has been ordered to see -patient said she recently had a problem with ongoing rectal prolapse *hypokalemia -add K protocol *hypernatremia -mild * seizures -Keppra * paraplegia -she is very independent at baseline * anemia -from chronic disease * plan. Will monitor overnight to make sure she does not have ongoing fevers. If stable, Will discharge in the morning. Awaiting pending labs including blood cultures. Subjective: Kim has no specific complaints. She is very concerned because she was having a high fever yesterday. Did not feel like herself when she was out walking her dog. She was extremely weak. She is feeling better today Objective: Vital Signs Temp Pulse Resp BP Pulse Ox 36.6 C 80 14 119/73 95 09/05/17 07:51 09/05/17 07:51 09/05/17 07:51 09/05/17 07:51 09/05/17 07:51 Laboratory Results 09/05/17 05:27 09/05/17 05:27 09/04/17 09/05/17 09/06/17 05:59 05:59 05:59 Intake Total 200 Output Total 200 Balance 200 -200 - Physical Exam Constitutional: not in pain Eyes: PERRL Ears, Nose, Mouth, Throat: hearing normal Cardiovascular: regular rate and rhythym Respiratory: no respiratory distress Gastrointestinal: normoactive bowel sounds Musculoskeletal: generalized weakness Neurologic: AAOx3 Psychiatric: interacting appropriately ICD10 Worksheet Patient Problems: Problems Problem Status Onset Fever Acute Prolapse of intestine Acute
--- NOTE | 2017-09-05 11:48 | ASMTCMCOM ---
CM Note CM Note Notes: Patient admitted with ongoing fever, likely urinary source of infection. She does not meet sepsis criteria. Patient has a hx of paraplegia since 1992, seizures, chronic pressure wounds, rectal prolapse and neurogenic bladder. I spoke with patient, she is "fiercely independent." She lives alone, has a son nearby. She drives to the wound healing center every Sunday and is seen in the home by a homecare RN ([facility]) every . We will resume those orders. No other d.c needs anticipated. Date Signed: 09/05/2017 11:47 AM Electronically Signed By:Renee Esparza RN
[2017-09-05] MEDS ORDERED: PROTOCOL POTASSIUM 1 DOSE MISC PRN (16:26)
--- NOTE | 2017-09-05 18:48 | WOCRNPDOC ---
[facility] Advanced Assessment Note - Skin Integrity Problem, Advanced Assess Perianal Dressing Type: Mepilex Border Dressing Description: Soiled Closure Description: Not Approximated Integumentary Issue Intervention: Dressing Removed Patricia Wound Tissue: Macerated, Non-blanching, Raw, Swollen Patricia Wound Swelling: Mild Wound Bed Color: [place], Red, Yellow, White Wound Bed Constitution: Red/[place] - Non Granular Tissue (85%), Adhered Slough (15 %) Wound Edges: Irregular Site Measurement - Head-to-Toe Length X Width X Depth (cm): 5x1.7x4.5+ Skin Integrity Problem Comment: Full thickness, deep wound potentially from rectal prolapse and moisture, followed outpatient by Dr Luo. Not pressure injury per Dr. Luo. Cavity depth unexplored past 4.5cm, Elizabeth Torab not comfortable exploring past that depth. Patient is partial paraplegic. Dressing removed as it was saturated with urine. Patient has Tejada catheter in place. Leave open to air. Wound care will not follow. Right Proximal Dorsal Foot Pressure Injury Dressing Type: Allevyn Life, Collagen (Ann-Marie; stuck, dried) Dressing Description: Clean/Dry, Intact Exudate Amount: Scant Exudate Color: Yellow Exudate Characteristic(s): Serosanguinous Integumentary Issue Intervention: Dressing Changed, Silver Gel Applied Patricia Wound Tissue: Erythema, Swollen Patricia Wound Swelling: Mild Wound Bed Color: Red Wound Bed Constitution: Red/[place] - Non Granular Tissue Wound Edges: Epithelizing Site Odor: Slight, Pungent Site Measurement - Head-to-Toe Length X Width X Depth (cm): 0.5x0.3x0.1 Pressure Injury Stage: Stage 2 Pressure Injury Present on Admit: Yes Skin Integrity Problem Comment: 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 Evolved from DTI. Partial thickness. Cleaned with normal saline. Silvasorb applied. Mepilex Ag dressing applied. Wound care will follow. Right Distal Dorsal Foot Pressure Injury Dressing Type: Allevyn Life Dressing Description: Clean/Dry, Intact Exudate Amount: Scant Exudate Color: Yellow Exudate Characteristic(s): Serosanguinous Integumentary Issue Intervention: Dressing Changed, Silver Gel Applied Patricia Wound Tissue: Erythema, Non-blanching, Swollen Patricia Wound Swelling: Moderate Wound Bed Color: Red, Yellow Wound Bed Constitution: Red/[place] - Non Granular Tissue (25%), Adhered Slough Site Odor: Moderate, Pungent Site Measurement - Head-to-Toe Length X Width X Depth (cm): 0.6x0.4x0.3 Pressure Injury Stage: Unstageable Pressure Injury Present on Admit: Yes Skin Integrity Problem Comment: Unstageable rn medical inpatient services related pressure injury, followed outpatient by Dr. Luo. Evolved from DTI. Wound cleaned with normal saline, patted dry with gauze. Silvasorb applied, and covered with Mepilex Ag border dressing. Wound care will follow. Right Posterior Heel Pressure Injury Dressing Type: Allevyn Life Dressing Description: Intact, Shadowed Exudate Amount: Moderate Exudate Color: Reddish/Yellow Exudate Characteristic(s): Serosanguinous Integumentary Issue Intervention: Dressing Changed, Dressing Initialed & Dated, Silver Gel Applied, Mechanical Debridement Patricia Wound Tissue: Erythema, Swollen Patricia Wound Swelling: Moderate Wound Bed Color: [place], Red, Yellow Wound Bed Constitution: Granulation Tissue (10%), Red/[place] - Non Granular Tissue (15%), Subcutaneous Fat (75%) Wound Edges: Attached, Not Attached (8 oclock), Thick (3 oclock) Site Odor: Moderate, Pungent Site Measurement - Head-to-Toe Length X Width X Depth (cm): 3.3x2.9x0.3 Pressure Injury Stage: Stage 4 Pressure Injury Present on Admit: Yes Skin Integrity Problem Comment: Full thickness rn medical inpatient services related pressure injury present on admission. Followed ouptatient by Dr. Luo. Wound bed cleaned with normal saline and patted dry with gauze. Mechanical debridement for small amount of loose fat performed by Elizabeth SARMIENTO. Silvasorb applied , and covered with Mepilex Ag border dressing. Wound care will follow. Right Lateral Proximal Foot Pressure Injury Dressing Type: Allevyn Life, Hydrofera Blue Ready, Other Other Dressing Type: steri strips Dressing Description: Clean/Dry, Intact Closure Description: Steri Strips, Not Approximated Exudate Amount: Minimal Exudate Color: Reddish/Yellow Exudate Characteristic(s): Serosanguinous Integumentary Issue Intervention: Dressing Changed, Dressing Initialed & Dated, Steri Strips Applied Patricia Wound Tissue: Erythema, Non-blanching, Swollen Patricia Wound Swelling: Moderate Wound Bed Color: [place], Red, Yellow Wound Bed Constitution: Red/[place] - Non Granular Tissue Wound Edges: Irregular Site Measurement - Head-to-Toe Length X Width X Depth (cm): 2.0x1.4x0.5 Skin Integrity Problem Comment: Surgical wound followed outpatient. Wound bed cleaned. Hydrofera blue ready cut to fit. Secured with mastisol and steri strip. Covered with Cutisorb dressing. Wound care will follow. Right Lateral Distal Foot Surgical Wound/Incision Dressing Type: Allevyn Life, Hydrofera Blue Ready Dressing Description: Clean/Dry, Intact Closure Description: Steri Strips, Not Approximated Exudate Amount: Minimal Exudate Color: Reddish/Yellow Exudate Characteristic(s): Serosanguinous Integumentary Issue Intervention: Dressing Changed, Dressing Initialed & Dated Patricia Wound Tissue: Erythema, Non-blanching, Swollen Patricia Wound Swelling: Moderate Wound Bed Color: [place], Red, Yellow Wound Bed Constitution: Red/[place] - Non Granular Tissue, Subcutaneous Fat, Adhered Slough Wound Edges: Irregular Site Odor: Moderate, Pungent Site Measurement - Head-to-Toe Length X Width X Depth (cm): 1.8x2.2x0.7 Skin Integrity Problem Comment: Surgical wound followed outpatient. Wound bed cleaned. Hydrofera blue ready cut to fit. Secured with mastisol and steri strip. Covered with Cutisorb dressing. Wound care will follow.
[2017-09-05] MEDS ORDERED: BACLOFEN 20 MG TAB PO SCH (21:00)
[2017-09-05] MEDS ORDERED: POTASSIUM CL 10 MEQ TAB PO ONE ×2 (21:13→21:30)
[2017-09-06 08:32] VITALS: BP 128/74
[2017-09-06] MEDS: DULoxetine 20 MG CAP PO SCH (08:40)
[2017-09-06] MEDS: GABAPENTIN 100 MG CAP PO SCH (08:42)
[2017-09-06] MEDS: BACLOFEN 20 MG TAB PO SCH (08:42)
[2017-09-06] MEDS: ENOXAPARIN 40 MG/0.4 ML SYR SC SCH (08:44)
--- NOTE | 2017-09-06 10:10 | HOSPPROG ---
Hospitalist Progress Note Assessment/Plan: Patient is a 52-year-old female with a past medical history of paraplegia since 1992, seizures, chronic chronic pressure wounds, rectal prolapse and neurogenic bladder. She presented the emergency room because of ongoing fever for approximately a day. She was seen earlier that day by Dr. Luo in for follow- up in regards to a wound. *Fever -low grade this morning -does not meet sepsis criteria -reviewed her chest x-ray which showed nothing acute -urinalysis shows positive nitrates +leuko esterase and 3-5 white blood cells -she has been started on ceftriaxone -cultures currently show no growth -patient is feeling much improved after being treated w abx #pyuria, concern for UTI -will treat her for a few more days since she has had much improvement * neurogenic bladder -she self caths 4 times daily and as needed, she does not have her catheters available to her -she has requested that the Tejada be placed in to avoid getting catheterize frequently * chronic pressure wounds -wound Care has been ordered to see -patient said she recently had a problem with ongoing rectal prolapse *hypokalemia -add K protocol *hypernatremia -mild * seizures -Keppra * paraplegia -she is very independent at baseline * anemia -from chronic disease * plan. dc home with f/u with Dr Luo Subjective: Kim is feeling much better today, would like to be dc. Objective: Vital Signs Temp Pulse Resp BP Pulse Ox 36.9 C 87 16 128/74 H 97 09/06/17 08:00 09/06/17 08:00 09/06/17 08:00 09/06/17 08:00 09/06/17 08:00 Laboratory Results 09/05/17 05:27 09/06/17 04:50 09/05/17 09/06/17 09/07/17 05:59 05:59 05:59 Intake Total 200 250 Output Total 1700 Balance 200 -1450 - Physical Exam Constitutional: no apparent distress, appears nourished, not in pain Eyes: PERRL Ears, Nose, Mouth, Throat: hearing normal Respiratory: no respiratory distress Skin: warm Musculoskeletal: generalized weakness Neurologic: AAOx3 Psychiatric: interacting appropriately ICD10 Worksheet Patient Problems: Problems Problem Status Onset Fever Acute Prolapse of intestine Acute
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
--- NOTE | 2017-09-06 11:50 | WOCRNPDOC ---
[facility] Advanced Assessment Note - Skin Integrity Problem, Advanced Assess Coccyx Pressure Injury Dressing Type: Open to Air Exudate Amount: Scant Exudate Color: Reddish/Yellow Exudate Characteristic(s): Serosanguinous Abraham Wound Tissue: Macerated, Weeping Abraham Wound Swelling: Mild Pressure Injury Stage: Stage 4 Pressure Injury Present on Admit: Yes (hospitalist notified) Skin Integrity Problem Comment: Patient s/p rectal prolapse repair, w/ full- thickness wounds r/t maceration in abraham-anal skin, and a tunnel extending superiorly from rectum toward the coccyx. While the abraham-anal wounds appear to be r/t near-constant moisture from previously prolapsed rectum, the tunneling is consistent w/ ongoing pressure. Given patient's paraplegia, it's likely that this wound was caused by mixed etiology. Per Dr. Luo, tunnel is smooth, extends approximately 5cm superiorly, and coccyx is not overtly palpable. There is very scant exudate, but no odor or periwound erythema evident. Dr. Luo injected micronized Epifix into the abraham-anal maceration wound, and will continue to follow this patient in the outpatient setting to monitor both wounds. Pressure-relieving interventions initiated by nursing, including turns side to side q2.
--- NOTE | 2017-09-06 11:58 | PDIAF ---
- Diagnosis Diagnosis: fevers, possible uti Code Status: Full Code - Medication Management Discharge Medications: Medications to Continue on Transfer Gabapentin [Neurontin 100 MG (*)] 100 mg PO TID 07/12/17 [Last Taken 09/04/17 14 :00] Herbals/Supplements -Info Only 1 ea PO DAILY 07/23/17 [Last Taken 07/23/17] Oxybutynin Chloride [Ditropan] 5 mg PO BID@,09/04/17 [Last Taken 09/04/17 14:00] Baclofen [Baclofen 20 mg (*)] 40 mg PO HS 09/05/17 [Last Taken 09/04/17] Baclofen [Baclofen 20 mg (*)] 60 mg PO BID@,09/05/17 [Last Taken 09/04/17 14:00] DULoxetine [Cymbalta] 40 mg PO DAILY 09/05/17 [Last Taken 09/04/17] diphenhydrAMINE [Benadryl 25 MG (*)] 25 mg PO DAILY PRN 09/05/17 [Last Taken Unknown] levOFLOXACIN [levAQUIN (*)] 750 mg PO DAILY #3 tab 09/06/17 [Last Taken Unknown] Discharge Medications: Refer to the Discharge Home Medication list for PRN reason. - Orders Services needed: Home Care, Registered Nurse Home Care Face to Face: I certify that this patient was under my care and that I had the required [id number] encounter meeting the encounter requirements on the discharge day. My findings support the fact that the patient is homebound as defined in Home Care Face to Face Continued: CMS Chapter 7 Medicare Benefits Manual 30.1.1 , The condition of the patient is such that there exists a normal inability to leave home and consequently, leaving home would require a considerable and taxing effort. Isolation Type: Contact Isolation Diet Recommendation: no restrictions on diet Diet Texture: Regular Texture Diet Additional Instructions: Resume outpatient Wound Healing orders when discharged. Elizabeth SARMIENTO take Levaquin starting tomorrow, this can affect the tendons, if you have increase pain; stop taking script for Levaquin was sent to [facility] here in the hospital If you develop ongoing fevers, talk w Dr Luo or come to the ER - Follow Up Care Current Providers and Referrals: Esmer Meyer MD [Primary Care Provider] -
--- NOTE | 2017-09-06 12:20 | ASMTLACE ---
RIOS Length of stay for Answers: 1 day current admission Acuity / Level of Answers: No Care: Did the patient have an inpatient admission? Comorbidities - select Answers: Other Notes: Paraplegia; HTN; Chroni c all that apply r foot infection # of Emergency department Answers: 1-2 visits in the last 6 months Score: 3 Date Signed: 09/06/2017 12:19 PM Electronically Signed By:Aleena Gilbert RN
--- NOTE | 2017-09-07 17:59 | ASDISCHSUM ---
Discharge Information Plan Status:Home with Home Health Medically Cleared to Leave: Discharge Date:09/06/2017 11:50 AM D/C Disposition:Home Health Service ADT D/C Disposition:Home, Routine, Self-Care Projected Discharge Date:09/06/2017 11:00 AM Transportation at D/C:Family Discharge Delay Reason: Follow-Up Date:09/06/2017 11:00 AM Discharge Slot: Final Diagnosis: Placement Information Referral Type:*Home Health Care Services Referral ID:[id number] Provider Name:[facility] ([facility]) Address 1:[address] [place] [address] Address 2: City:[place] Selection Factors: State:[place] Patient Contact Information Contact Name:JAI Relationship:Son Address: Work Phone: City: [facility] Phone: [facility] Code: Email: Financial Information Financial Class:Medicare Primary Plan Desc:MEDICARE OUTPATIENT Primary Plan Number:[id number] Secondary Plan Desc: Secondary Plan Number: Assessment Information [facility] CM Progress Note CM Note CM Note Notes: Patient admitted with ongoing fever, likely urinary source of infection. She does not meet sepsis criteria. Patient has a hx of paraplegia since 1992, seizures, chronic pressure wounds, rectal prolapse and neurogenic bladder. I spoke with patient, she is "fiercely independent." She lives alone, has a son nearby. She drives to the wound healing center every Sunday and is seen in the home by a homecare RN ([facility]) every . We will resume those orders. No other d.c needs anticipated. Date Signed: 09/05/2017 11:47 AM Electronically Signed By:Renee Esparza RN LACE LACE Length of stay for Answers: 1 day current admission Acuity / Level of Answers: No Care: Did the patient have an inpatient admission? Comorbidities - select Answers: Other Notes: Paraplegia; HTN; Chroni c all that apply r foot infection # of Emergency department Answers: 1-2 visits in the last 6 months Score: 3 Date Signed: 09/06/2017 12:19 PM Electronically Signed By:Aleena Gilbert RN Case Management Discharge Plan Note Case Management Discharge Discharge Order Complete? Answers: Yes Patient to Obtain Answers: Independently Medications Transportation Arranged Answers: Family/Friends Faxed Final Orders Answers: Yes Agency/Facility Transfer Answers: Yes Report Printed & Faxed to Receiving Agency Discharge Comments Notes: D/w [employer], final orders faxed. [facility] at [facility] notified. Date Signed: 09/06/2017 12:22 PM Electronically Signed By:Aleena Gilbert RN Intervention Information Intervention Type:*AMTHEW-Signed Date of Service:09/05/2017 02:47 PM Patient Type:Observation Staff Member:Ina Figueroa Hours: Discipline: Severity: Comment: Intervention Type:No Admission Order Date of Service:09/06/2017 11:59 AM Patient Type:Observation Staff Member:JESSICA Araujo Susan Hours: Discipline: Severity: Comment:
== END 2017-09-06 11:50 | disposition home or self-care (01) ==
LOC: F3E 09-05 01:25 → UNDODISOB 09-06 11:46
PROVIDERS: ADMIT Family Medicine; ATTEND Internal Medicine
DX: R50.9 Fever, unspecified (principal); G82.21 Paraplegia, complete; N31.9 Neuromuscular dysfunction of bladder, unspecified; E87.6 Hypokalemia; E87.1 Hypo-osmolality and hyponatremia; D64.9 Anemia, unspecified; R56.9 Unspecified convulsions; K62.3 Rectal prolapse; L97.511 Non-pressure chronic ulcer of other part of right foot limited to breakdown of skin; V87.7XXS Person injured in collision between other specified motor vehicles (traffic), sequela; G47.33 Obstructive sleep apnea (adult) (pediatric); Z99.3 Dependence on wheelchair; Z90.49 Acquired absence of other specified parts of digestive tract
CPT/HCPCS: 71046; 96365; 99285; J0696; J1650

== ENCOUNTER 2017-09-20 22:05 | Emergency (ER) | payer OTHER ==
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
[2017-09-20 23:02] LABS: PLATELET COUNT 340 10^3/uL (150-400)
[2017-09-20 23:10] LABS: INR 1.21 (0.83-1.16); PROTIME(PATIENT) 15.5 SEC (12.0-15.0)
[2017-09-20] MEDS ORDERED: IOPAMIDOL (ISOVUE-300) 100 ML BTL ONE (23:15)
[2017-09-20] MEDS ORDERED: NS 1,000 ML IV ONE (23:18)
[2017-09-21] MEDS ORDERED: POTASSIUM CL 20 MEQ PKT PO ONE (00:31)
[2017-09-21] MEDS ORDERED: POTASSIUM CL 20 MEQ TAB ONE (00:37)
[2017-09-21 00:53] VITALS: BP 111/77
== END 2017-09-21 01:02 | disposition home or self-care (01) ==
DX: K62.3 Rectal prolapse (principal); K62.89 Other specified diseases of anus and rectum; E87.6 Hypokalemia; I10 Essential (primary) hypertension; E86.9 Volume depletion, unspecified; Z87.891 Personal history of nicotine dependence
CPT/HCPCS: Q9967

== ENCOUNTER 2018-04-11 06:04 | Day surgery (SDC) | payer OTHER ==
[2018-04-11] MEDS ORDERED: LR 1,000 ML IV ONE (06:15)
[2018-04-11] MEDS ORDERED: LIDOCAINE 1% 2 ML INJ ID PRN (06:15)
[2018-04-11] MEDS ORDERED: BACITRACIN 50,000 UNITS/10 ML SYR IRR ONE ×2 (06:47→07:59)
[2018-04-11] MEDS ORDERED: EPINEPHrine 1 MG/ML INJ ONE (06:47)
[2018-04-11] MEDS ORDERED: BUPIVACAINE 0.25% 30 ML SDV ONE (06:47)
[2018-04-11] MEDS ORDERED: PROPOFOL/EMULSION 500 MG/50 ML BOTTLE IV ONE (06:56)
[2018-04-11] MEDS ORDERED: HYDROmorphONE/DILAUDID 2 MG/ML INJ IVP PRN (06:58)
[2018-04-11] MEDS ORDERED: fentaNYL 100 MCG/2 ML INJ IVP PRN (06:58)
[2018-04-11] MEDS ORDERED: NALOXONE HCL 0.4 MG/ML INJ IVP PRN (06:58)
[2018-04-11] MEDS ORDERED: ONDANSETRON 4 MG/2 ML VIAL IVP PRN (06:58)
[2018-04-11] MEDS ORDERED: MIDAZOLAM 2 MG/2 ML VIAL IVP ONE (06:58)
[2018-04-11] MEDS ORDERED: PHENYLEPHRINE HCL 100 MCG/ML SYR IVP PRN (06:58)
[2018-04-11] MEDS ORDERED: MEPERIDINE 25 MG/0.5 ML AMP IVP PRN (06:58)
[2018-04-11] MEDS ORDERED: LR 500 ML IV PRN (06:58)
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
[2018-04-11] MEDS ORDERED: ceFAZolin 2 GM/DEXTROSE 100 ML IV ONE (07:21)
[2018-04-11] MEDS ORDERED: CEFAZOLIN 2 GM/DEXTROSE/100 ML BAG IV ONE (07:23)
[2018-04-11] MEDS ORDERED: POLYMYXIN B SULFATE 500,000 UNIT/10 ML SYR IRR ONE (07:59)
[2018-04-11] MEDS ORDERED: ONDANSETRON 4 MG/2 ML VIAL ONE (08:04)
--- NOTE | 2018-04-11 09:03 | POSTOPPROG ---
Post Op Note Date of Operation: 04/11/18 Surgeon: Coy Dangelo Die Cast Operator: none Anesthesiologist: Cristobal Anesthesia: IV Sedation Pre-op Diagnosis: ulcer right foot Post-op Diagnosis: ulcer with osteomyelitis right 4th met Indication: ulcer Procedure: excisional debridement with tissue decorator inspector and primary closure Findings: osteomyelitis Inf/Abcess present in the surg proc area at time of surgery?: Yes Depth: Deep Incisional (Fascial) EBL: Minimal Total fluids administered: 20cc 9/1 .25% marcaine plain and with epi Complications: none Drains: Other (none)
--- NOTE | 2018-04-11 11:40 | GOP ---
DATE OF OPERATION: 04/11/2018 SURGEON: Coy Dangelo DPM SCHOOL SUPERVISOR: None. ANESTHESIA: Local with MAC. ANESTHESIOLOGIST: Russell Jain MD PREOPERATIVE DIAGNOSIS: Ulceration, plantar lateral right foot. POSTOPERATIVE DIAGNOSIS: 1. Ulceration, plantar lateral right foot. 2. Osteomyelitis, right 4th ray. PROCEDURE PERFORMED: 1. Extensive debridement, including partial 4th metatarsal ray resection, right. 2. Application of tissue publishing director, right. 3. Removal of tissue publishing director, right. 4. Wound closure after tissue publishing director, right. FINDINGS: SPECIMENS: Soft tissue specimen sent for culture and sensitivity; 4th metatarsal sent for culture an d sensitivity and pathological evaluation. ESTIMATED BLOOD LOSS: Minimal. DESCRIPTION OF PROCEDURE: The patient presented to [facility] and was cleared for the intended procedure. The patient was taken to the operating room and placed on the table in supine po sition. IV sedation was started per the anesthesia department. The foot was anesthetized in an infi ltrative nerve block fashion. At this time, the patient was moved into a lateral position and held a ppropriately with the beanbags. Following this, the foot was prepped, scrubbed, and draped in the [facility] sterile fashion following exsanguination by elevation with Esmarch bandage. Pneumatic ankle tour niquet was inflated to 225 mmHg. At this time, attention was directed to the plantar aspect of the r ight foot, where the obvious full-thickness ulceration was noted. It was noted to be measuring appro ximately 13 mm in diameter. The area did not probe directly to bone. At this time, the decision was made to perform a primary excision of the ulceration site. Two converging semi-elliptical incisions were made, running from distal to proximal around the ulceration site and approximately 5 cm of jesus th. These incisions were carried deep utilizing sharp and blunt dissection, making sure that all june rovascular structures were identified and retracted. At this time, all superficial bleeders were cau terized. Incision was carried down deep to the level of the 4th metatarsal. Upon dissecting the ulc eration free, the plantar surface of the 4th metatarsal was appreciable. The soft tissue was sent in for culture and sensitivity at this time. Evaluation of the 4th metatarsal head noted it to be show ing signs of erosion distally. The bone was soft upon probing, and it was decided that a partial 4th metatarsal ray resection would be necessary. The metatarsal was freed up proximally to the midshaft area where an osteotomy was performed, running from plantar proximal to distal dorsal. The head of the 4th metatarsal was then excised and sent in for culture and sensitivity, as well as pathological evaluation of the proximal end. Upon completion of this, the area was cleaned in a pulse lavage fash ion with 3 L of antibiotic rinse. Upon completion, the deep tissue was closed with 2-0 Vicryl. Skin closure could not be obtained at this point, and it was decided that a tissue publishing director would be nece ssary. The DermaClose device was stapled appropriately around the wound, and the device was placed o n the site. After being appropriately tensioned, it was left for approximately 20 minutes until the wound edges were now touching and primary closure could be obtained. The device was removed, and the incision was closed with 3-0 nylon. Upon completion of this, the area was dressed with Betadine-soa ked Adaptics, 4x4s, Kerlix, and Coban. The patient was placed into a posterior splint to keep the fo ot in a more rectus alignment and prevent her from putting pressure on the area that could cause furt her breakdown. The patient was taken to the recovery room, vital signs stable, vascular supply intac t to the remaining digits after the pneumatic ankle tourniquet had been released for a total tourniqu et time of 51 minutes. HEMOSTASIS: PAT at 225 mmHg by 51 minutes. MATERIALS: None. INJECTABLES: 20 cc at 9:1 ratio of 0.25% Marcaine plain, 0.25% Marcaine with epi preoperatively. COMPLICATIONS: None. /[id number]/MODL
[2018-04-11 13:05] VITALS: BP 140/83
== END 2018-04-11 13:05 | disposition home or self-care (01) ==
LOC: FSGY 06:04
PROVIDERS: ATTEND Podiatrist Primary Podiatric Medicine
PROC: 0Y6M0ZD Detachment at Right Foot, Partial 4th Ray, Open Approach (ICD-10-PCS; principal; 2018-04-11 07:15)
PROC: 0JBQ0ZZ Excision of Right Foot Subcutaneous Tissue and Fascia, Open Approach (ICD-10-PCS; principal; 2018-04-11 07:15)
DX: L97.519 Non-pressure chronic ulcer of other part of right foot with unspecified severity (principal); M86.171 Other acute osteomyelitis, right ankle and foot
CPT/HCPCS: J0171; J0690; J2250; J2405; J2704